=== PATIENT | female | born 1960 | race Hispanic/Latino ===

== ENCOUNTER 2017-12-07 06:39 | Day surgery (SDC) | payer OTHER ==
[2017-12-07 07:23] VITALS: O2SAT 100
[2017-12-07] MEDS ORDERED: ceFAZolin 1 gm in NS 1 GM/100 ML BAG IVPB ONE (07:48)
[2017-12-07] MEDS ORDERED: Midazolam 2 MG/2 ML VIAL ONE (07:52)
[2017-12-07] MEDS ORDERED: Propofol 10 mg/ml Inj (20 ML) ONE (07:53)
[2017-12-07] MEDS ORDERED: Succinylcholine Chloride 20 mg/ml Syr (5 ml) IV ONE (08:06)
[2017-12-07] MEDS ORDERED: Lactated Ringer's 1,000 ML IV ONE (08:20)
[2017-12-07] MEDS: HYDROmorphone 0.5 mg/0.5 ml ISec IVP PRN ×2 (08:30→08:45)
[2017-12-07] MEDS ORDERED: Acetaminophen-Codeine 300/30 mg Tab PO PRN (08:35)
[2017-12-07] MEDS ORDERED: Dextrose 5%/0.45% NS 1,000 ML IV SCH (08:45)
[2017-12-07 12:15] VITALS: BP 99/60; PULSE 80; RESP 18; TEMP 97.8
--- NOTE | 2017-12-07 19:19 | OP ---
Copied To: Mehrdad Kemp MD Attending MD: Mehrdad Kemp MD PROCEDURE DATE: 12/07/2017 PREOPERATIVE DIAGNOSIS: Right hypopharyngeal lesion, possible. POSTOPERATIVE DIAGNOSIS: Right hypopharyngeal lesion, possible. PROCEDURE: Direct laryngoscopy and biopsy. SIGNIFICANT FINDINGS: No masses or lesions. DESCRIPTION OF PROCEDURE: Patient was brought into room, placed in supine position. Anesthesia was initiated through an ET tube. Shoulder roll was placed and neck extended. Patient was draped in usual manner. Tooth guard was placed over the upper teeth in order to protect them and was taken out at the end of the case. Direct laryngoscope was inserted into oral cavity that is oropharynx and hypopharynx. The base of tongue, vallecula, epiglottis, AE folds, false cords, true cords, arytenoids, pharyngeal mirza were brought into view. No masses or lesions were noted. Multiple biopsies of the hypopharyngeal wall on the right were taken. Biopsies were taken of the posterior lateral and anterior wall of the hypopharynx. Bleeding was controlled using cold water irrigation. Direct laryngoscope was removed. The tooth guard was removed. The patient was taken off anesthesia and taken to recovery room in stable manner. Mehrdad Kemp MD
== END 2017-12-07 13:15 | disposition home or self-care (01) ==
LOC: C.SDS 06:39
PROVIDERS: ATTEND Otolaryngology
DX: R22.1 Localized swelling, mass and lump, neck (principal); J37.0 Chronic laryngitis
CPT/HCPCS: 31535; 88305; J1170; J2250; J2704; J3010; J7040; J7120

== ENCOUNTER 2017-12-15 08:18 | Emergency (ER) | payer OTHER ==
[2017-12-15 08:32] VITALS: BP 114/80; PULSE 83; RESP 19; TEMP 98.5; O2SAT 100
[2017-12-15] MEDS ORDERED: Dexamethasone 4 mg/1 ml IM STA (08:55)
--- NOTE | 2017-12-15 08:55 | C.PDOC ---
History Of Present Illness 57-year-old female presents to the ED with complaints of right-sided throat pain and swelling for 1 week. Records reviewed, patient recently underwent laryngoscopy with biopsy performed by Dr. Kemp on 12/07 due to possible right hypopharyngeal lesion; biopsy is negative for malignancy. Patient states the pain and swelling have progressively worsened since the procedure. She was seen by Dr. Kemp on 12/13 and prescribed Tylenol #3, with some improvement in pain but persistent sensation of swelling. She reports difficulty swallowing and voice hoarseness for the past few days, and has been eating mostly soft foods. Otherwise she denies any productive cough, congestion, rhinorrhea, fever, hemoptysis, vomiting, or headaches. Time Seen by Provider: 12/15/17 08:40 Chief Complaint (Nursing): ENT Problem History Per: Patient History/Exam Limitations: None Onset/Duration Of Symptoms: Days Current Symptoms Are (Timing): Still Present Quality (Mouth/Throat): Swelling Severity: Severe Pain Scale Rating Of: 10 Past Medical History Reviewed: Historical Data, Nursing Documentation, Vital Signs Vital Signs: Last Vital Signs Temp 98.5 F 12/15/17 08:26 Pulse 83 12/15/17 08:26 Resp 19 12/15/17 08:26 BP 114/80 12/15/17 08:26 Pulse Ox 100 12/15/17 09:10 - Medical History PMH: Colonic Polyps, Hypercholesterolemia Surgical History: Endoscopy Family History: States: No Known Family Hx - Social History Hx Alcohol Use: No Hx Substance Use: No - Immunization History Hx Tetanus Toxoid Vaccination: No Hx Influenza Vaccination: No Hx Pneumococcal Vaccination: No Review Of Systems Except As Marked, All Systems Reviewed And Found Negative. Constitutional: Negative for: Fever ENT: Positive for: Throat Pain, Throat Swelling, Other (Difficulty swallowing). Negative for: Nose Discharge, Nose Congestion Respiratory: Positive for: Cough. Negative for: Shortness of Breath, Hemoptysis , Sputum Gastrointestinal: Negative for: Nausea, Vomiting, Abdominal Pain Neurological: Negative for: Headache, Dizziness Physical Exam - Physical Exam Appears: Well, Non-toxic, No Acute Distress Skin: Warm, Dry, No Rash Head: Atraumatic, Normacephalic Eye(s): bilateral: Normal Inspection Ear(s): Bilateral: Normal Nose: Normal, No Discharge Oral Mucosa: Moist Tongue: Normal Appearing, No Swelling Lips: Normal Appearing, No Swelling Throat: Normal, No Erythema, No Exudate, No Drooling, No Mass, Other (uvula midline, tonsils not swollen or erythematous) Neck: Normal ROM, Trachea Midline, No Midline Cervical Tenderness, No Paracervical Tenderness, Supple Lymphatic: Normal Exam, No Adenopathy Chest: Symmetrical Cardiovascular: Rhythm Regular, No Murmur Respiratory: Normal Breath Sounds, No Rales, No Rhonchi, No Wheezing Extremity: Bilateral: Atraumatic, Normal Color And Temperature, Normal ROM Pulses: Left Radial: Normal, Right Radial: Normal Neurological/Psych: Oriented x3, Normal Speech, Normal Cranial Nerves Gait: Steady ED Course And Treatment O2 Sat by Pulse Oximetry: 100 (room air) Pulse Ox Interpretation: Normal Medical Decision Making Medical Decision Making: Initial Impression: Throat pain and swelling status-post procedure Initial Plan: --Decadron 8 mg IM --Paged ENT, Dr. Kemp Progress/Updates: 8:55am - Discussed case with Dr. Kemp, who agrees with management and advises that patient does not require further pain medication. Patient can be discharged home and follow up in the office. The patient instructed to follow up outpatient. The patient was requesting more pain medication, I explained decadron will treat any inflammation or swelling that she is having. The patient is speaking clear full sentences, and tolerating her own secretions. There is no intraoral swelling or concern for airway obstruction. Patient stable for discharge. Disposition Counseled Patient/Family Regarding: Diagnosis, Need For Followup - Disposition Referrals: Juan Luis Hung MD [Staff Provider] - Mehrdad Kemp MD [Staff Provider] - Rita Aguilera MD [Non-Staff] - Disposition: HOME/ ROUTINE Disposition Time: 09:30 Condition: STABLE Additional Instructions: Try try lozenges or cepacol spary over the counter. Gargle with warm water. Take Tylenol or Motrin as needed for pain Please follow up with your doctor Instructions: Sore Throat, Adult (DC) Forms: [facility] (Irish) - POA Present On Arrival: None - Clinical Impression Clinical Impression: Throat pain in adult, History of laryngoscopy - PA / PAINTER ASSISTANT / Resident Statement MD/DO has reviewed & agrees with the documentation as recorded. - Scribe Statement The provider has reviewed the documentation as recorded by the Scribe (Frances Lang) All medical record entries made by the Scribe were at my direction and personally dictated by me. I have reviewed the chart and agree that the record accurately reflects my personal performance of the history, physical exam, medical decision making, and the department course for this patient. I have also personally directed, reviewed, and agree with the discharge instructions and disposition.
== END 2017-12-15 09:36 | disposition home or self-care (01) ==
LOC: C.ER 08:18
DX: R07.0 Pain in throat (principal); Z98.890 Other specified postprocedural states
CPT/HCPCS: 96372; 99283; J1100